=== PATIENT | male | born 2000 | race Caucasian/White ===

== ENCOUNTER 2023-04-27 12:33 | Emergency (ER) | payer SELFPAY, OTHER ==
[2023-04-27] MEDS ORDERED: Morphine 4 MG/ML VIAL ONE (12:59)
[2023-04-27 13:00] LABS: PTT 23.9 sec (22.9-36.1); Prothrombin Time 13.7 sec (12.0-14.7)
[2023-04-27 13:08] LABS: ALT (SGPT) 141 U/L (8-55); AST (SGOT) 63 U/L (5-34); Albumin 4.7 g/dL (3.5-5.0); Alkaline Phosphatase 91 U/L (40-110); Anion Gap 16 mmol/L (10-20); BUN (Urea Nitrogen) 10 mg/dL (8.9-20.6); Bilirubin, Total 0.3 mg/dL (0.2-1.2); Calc. Creatinine Clearance 0 mL/min (70-130); Calcium 9.4 mg/dL (7.8-10.44); Carbon Dioxide 20 mmol/L (22-29); Chloride 104 mmol/L (98-107); Estimated GFR 122; Globulin 3.2 g/dL (2.4-3.5); Glucose 141 mg/dL (70-105); Potassium 3.2 mmol/L (3.5-5.1); Protein, Total 7.9 g/dL (6.0-8.3); Sodium 137 mmol/L (136-145)
[2023-04-27 13:09] LABS: Hematocrit 50.9 % (42.0-52.0); Hemoglobin 16.5 g/dL (14.0-18.0); Mean Corpuscular HGB CONC 32.5 g/dL (32.0-36.0); Mean Corpuscular Hemoglobin 29.6 pg (27.0-31.0); Mean Platelet Volume 8.1 fL (7.4-10.4); Platelet Count 432 10x3/uL (130-400); RBC Distribution Width 12.8 % (11.5-14.5); White Blood Cell (WBC) Count 17.5 10x3/uL (4.8-10.8)
[2023-04-27 13:10] LABS: Band 2 % (5-11); Eosinophils 2 % (0-10); Lymphocytes 40 % (21-51); MDiff Complete? YES; Manual Diff?? YES; Monocytes 8 % (0-10); Neutrophil 48 % (42-75)
[2023-04-27 13:11] LABS: Platelet Adequacy Comment Appears Increased; RBC Morph Comment Within Normal Limits
[2023-04-27] MEDS ORDERED: Sodium Chloride 0.9% 1,000 ML ONE (15:35)
== END 2023-04-27 17:35 | disposition home or self-care (01) ==
LOC: MADERS 12:33
DX: S42.252A Displaced fracture of greater tuberosity of left humerus, initial encounter for closed fracture (principal); V89.2XXA Person injured in unspecified motor-vehicle accident, traffic, initial encounter
CPT/HCPCS: 23650; 71045; 80053; 83605; 85025; 85610; 85730; 96361; 96374; J2270; J7050